=== PATIENT | female | born 1945 | race Caucasian/White ===

== ENCOUNTER → 2016-07-17 | Outpatient (CLI) | payer MEDICARE ==
[~2016-07-17] MED LIST: ASPI-496 PO; CALC1TAB84 PO; CHOL200024 PO; DOXY100T PO; HYDR200T PO; HYDR25TA6 PO; LEVO125T5 PO; LISI-167 PO; MULT-516 PO; OXYB10TA PO; TIOT4MIS3 PO; VITA150T PO
[2016-07-17 11:16] LABS: HEMOGLOBIN 12.7 g/dL (11.7-16.4)
[2016-07-17 11:30] LABS: BLOOD UREA NITROGEN 20 mg/dL (7-18)
[2016-07-17 11:33] LABS: ASPARTATE AMINO TRANSFERASE 17 U/L (15-37)
== END | disposition home or self-care (01) ==
LOC: STAR 09:32
PROVIDERS: ATTEND Orthopaedic Surgery
DX: Z01.810 Encounter for preprocedural cardiovascular examination (principal); M16.12 Unilateral primary osteoarthritis, left hip
CPT/HCPCS: 36415; 80053; 81003; 85025; 87081; 93005

== ENCOUNTER 2016-07-24 06:28 | Inpatient (IN) | payer MEDICARE ==
[~2016-07-24] VITALS: Ht 165.1 cm; Wt 79.0 kg
[2016-07-24] MEDS ORDERED: KETOROLAC 60 MG/2 ML ONE (06:43)
[2016-07-24] MEDS ORDERED: EPINEPHRINE 1 MG/ML, 1ML ONE (06:44)
[2016-07-24] MEDS ORDERED: ROPIvacaine/PF 0.2%, 20 ML ONE (06:44)
[2016-07-24] MEDS ORDERED: TRANEXAMIC ACID 100 MG/ML, 10ML ONE (06:44)
[2016-07-24] MEDS ORDERED: SODIUM CHLORIDE 0.9% 50 ML ONE (06:44)
[2016-07-24] MEDS ORDERED: LACTATED RINGERS 1,000 ML IV SCH (06:54)
[2016-07-24 06:55] VITALS: BP 145/85
[2016-07-24] MEDS ORDERED: LIDOCAINE 1%, 2ML SQ PRN (07:00)
[2016-07-24] MEDS ORDERED: SUCCINYLCHOLINE 20 MG/ML, 10ML ONE (07:19)
[2016-07-24] MEDS ORDERED: CEFAZOLIN 1,000 MG ONE (07:19)
[2016-07-24] MEDS ORDERED: ONDANSETRON 2MG/ML, 2ML ONE ×2 (07:19→09:56)
[2016-07-24] MEDS ORDERED: PROPOFOL 10 MG/ML, 20ML ONE (07:19)
[2016-07-24] MEDS ORDERED: ROCURONIUM 10 MG/ML ONE (07:19)
[2016-07-24] MEDS ORDERED: METOCLOPRAMIDE 5 MG/ML, 2ML IV PRN (08:00)
[2016-07-24] MEDS ORDERED: OXYcodone 5 MG/5 ML ORAL.SOL UDC PO PRN (08:00)
[2016-07-24] MEDS ORDERED: HYDROmorphone 1 MG/ML, 1ML IV PRN ×2 (08:00→09:00)
[2016-07-24] MEDS ORDERED: LABETALOL 5MG/ML, 20ML IV PRN (08:00)
[2016-07-24] MEDS ORDERED: hydrALAzine 20 MG/ML, 1ML IV PRN (08:00)
[2016-07-24] MEDS ORDERED: ACETAMINOPHEN 325 MG TABLET PO PRN (08:00)
[2016-07-24] MEDS ORDERED: ONDANSETRON 2MG/ML, 2ML IVPush PRN (08:00)
[2016-07-24] MEDS ORDERED: OXYcodone 5 MG/5 ML ORAL.SOL UDC ONE (08:59)
[2016-07-24] MEDS ORDERED: FENTANYL PF 100 MCG/2ML ONE (08:59)
[2016-07-24] MEDS ORDERED: ACETAMINOPHEN 325 MG TABLET ONE (08:59)
[2016-07-24] MEDS ORDERED: ACETAMINOPHEN 650 MG/20.3 ML UDC ONE (08:59)
[2016-07-24] MEDS ORDERED: PROMETHAZINE 25 MG/ML, 1ML IM PRN (09:00)
[2016-07-24] MEDS ORDERED: MAGNESIUM HYDROXIDE 8%, 30ML UDC PO PRN (09:00)
[2016-07-24] MEDS: OXYcodone IR 5MG TABLET PO SCH ×3 (09:00→18:47)
[2016-07-24] MEDS ORDERED: ALUMINUM/MAG/SIMETHICONE 30 ML UDC PO PRN (09:00)
[2016-07-24] MEDS ORDERED: SENNA/DOCUSATE TABLET PO PRN (09:00)
[2016-07-24] MEDS ORDERED: ONDANSETRON 4 MG TABLET PO PRN (09:00)
[2016-07-24] MEDS ORDERED: DIAZEPAM 5 MG TABLET PO PRN (09:00)
[2016-07-24] MEDS: DOCUSATE 100 MG CAPSULE PO SCH ×2 (09:00→21:57)
[2016-07-24] MEDS: ACETAMINOPHEN 650 MG/20.3 ML UDC PO SCH ×4 (09:00→22:45)
[2016-07-24] MEDS: PREGABALIN 75 MG CAPSULE PO SCH ×2 (09:00→21:58)
[2016-07-24] MEDS ORDERED: PROMETHAZINE 12.5 MG SUPP PR PRN (09:00)
[2016-07-24] MEDS: MULTIVITAMINS/MINERALS TABLET PO SCH (09:00)
[2016-07-24] MEDS ORDERED: DIPHENHYDRAMINE 25 MG CAPSULE PO PRN (09:00)
[2016-07-24] MEDS ORDERED: SCOPOLAMINE PATCH, 1.5MG PATCH.TD72 TD PRN (09:00)
[2016-07-24] MEDS ORDERED: BISACODYL 10 MG SUPP PR PRN (09:00)
[2016-07-24] MEDS ORDERED: HYDROcodone/APAP 10/325 MG TABLET PO PRN (09:00)
[2016-07-24] MEDS ORDERED: OXYcodone IR 5MG TABLET PO PRN (09:00)
[2016-07-24] MEDS ORDERED: ZOLPIDEM 5MG TABLET PO PRN (09:00)
[2016-07-24] MEDS: FENTANYL PF 100 MCG/2ML IV PRN ×2 (09:02→09:15)
[2016-07-24] MEDS ORDERED: TRANEXAMIC ACID 1,000 MG in SODIUM CHLORIDE 0.9% 100 ML IVPB ONE (09:15)
[2016-07-24] MEDS: TAMSULOSIN 0.4 MG CAP.ER.24H PO SCH (09:15)
[2016-07-24] MEDS ORDERED: HYDROmorphone 2 MG/ML, 1ML ONE (09:25)
[2016-07-24] MEDS: ONDANSETRON 2MG/ML, 2ML IV PRN ×3 (09:59→19:28)
[2016-07-24 10:15] VITALS: BP 119/59
[2016-07-24] MEDS: D5%-0.45% NACL 1,000 ML IV SCH ×2 (10:26→16:26)
[2016-07-24 14:00] VITALS: BP 109/66
[2016-07-24] MEDS: CEFAZOLIN PMX 2GM/50ML 50 ML IVPB SCH (16:26)
[2016-07-24] MEDS: ASPIRIN 81 MG TABLET EC PO SCH (18:47)
[2016-07-24 20:43] VITALS: BP_SYST 115; BP_SYST 120; BP_DIAS 52
[2016-07-24] MEDS: OXYBUTYNIN CHLORIDE 5 MG TABLET PO SCH (21:57)
[2016-07-24] MEDS: HYDROXYCHLOROQUINE 200 MG TABLET PO SCH (21:59)
[2016-07-25] MEDS: CEFAZOLIN PMX 2GM/50ML 50 ML IVPB SCH (00:24)
[2016-07-25] MEDS: OXYcodone IR 5MG TABLET PO SCH ×3 (00:31→10:36)
[2016-07-25 00:43] VITALS: BP 125/69
[2016-07-25] MEDS: D5%-0.45% NACL 1,000 ML IV SCH ×2 (00:46→10:37)
[2016-07-25] MEDS: ACETAMINOPHEN 650 MG/20.3 ML UDC PO SCH ×3 (02:45→11:01)
[2016-07-25 04:00] VITALS: BP 120/64
[2016-07-25] MEDS ORDERED: LEVOTHYROXINE 125 MCG TABLET PO SCH (06:00)
[2016-07-25] MEDS ORDERED: DEXAMETHASONE 4 MG/ML, 1ML IVPush SCH (06:00)
[2016-07-25] MEDS: ASPIRIN 81 MG TABLET EC PO SCH (06:07)
[2016-07-25] MEDS: TAMSULOSIN 0.4 MG CAP.ER.24H PO SCH (07:32)
[2016-07-25 08:15] VITALS: BP 110/76
[2016-07-25] MEDS: PREGABALIN 75 MG CAPSULE PO SCH (08:46)
[2016-07-25] MEDS: DOCUSATE 100 MG CAPSULE PO SCH (08:48)
[2016-07-25] MEDS: OXYBUTYNIN CHLORIDE 5 MG TABLET PO SCH (08:48)
[2016-07-25] MEDS: MULTIVITAMINS/MINERALS TABLET PO SCH (08:48)
[2016-07-25] MEDS: HYDROXYCHLOROQUINE 200 MG TABLET PO SCH (08:50)
[2016-07-25] MEDS ORDERED: LISINOPRIL 10 MG TABLET PO SCH (09:00)
[2016-07-25] MEDS ORDERED: HYDROCHLOROTHIAZIDE 25 MG TABLET PO SCH (09:00)
[2016-07-25] MEDS ORDERED: DOXYCYCLINE 100MG TABLET PO SCH (09:00)
[2016-07-25] MEDS ORDERED: KETOROLAC 30 MG/1 ML IV SCH (09:00)
[2016-07-25 11:08] VITALS: BP 127/67
[2016-07-25] MEDS ORDERED: OXYC5CAP4 PO (11:46)
== END 2016-07-25 12:00 | disposition home or self-care (01) | DRG 470 ==
LOC: ORIP 06:28 → 4NOR 10:03 → DCLOUNGE 07-25 11:40
PROVIDERS: ADMIT Orthopaedic Surgery; ATTEND Orthopaedic Surgery
PROC: 0SRB0JZ Replacement of Left Hip Joint with Synthetic Substitute, Open Approach (ICD-10-PCS; principal; 2016-07-24 07:30)
DX: M16.12 Unilateral primary osteoarthritis, left hip (principal); E03.9 Hypothyroidism, unspecified; I10 Essential (primary) hypertension; L93.0 Discoid lupus erythematosus; Z88.8 Allergy status to other drugs, medicaments and biological substances; Z79.82 Long term (current) use of aspirin
CPT/HCPCS: 36415; 72170; 85014; 85018; 86850; 86870; 86900; 86922; 86923; C1713; J0171; J0690; J1100; J1170; J1885; J2250; J2405; J2704; J2795; J3010; C1776; J0330; J7120